=== PATIENT | male | born 1940 | race Caucasian/White ===

== ENCOUNTER → 2019-11-15 | Outpatient (CLI) | payer MEDICARE, BC ==
[~2019-11-15] MED LIST: DOMPERIDONE; MUCINEX TA600 MG/TA1 PO; NORCO 7.5-3251 EACH; OMEPRAZOLE 20 M20 MG PO; PREDNISONE 10 M10 M1 PO; ZETIA10 MG
== END ==
LOC: M.RAD 16:21
DX: J41.8 Mixed simple and mucopurulent chronic bronchitis (principal); R06.2 Wheezing

== ENCOUNTER → 2020-05-24 | Outpatient (CLI) | payer MEDICARE, BC | LOC: M.CT 16:45 | PROVIDERS: ATTEND Registered Nurse Diabetes Educator | DX: K80.80 Other cholelithiasis without obstruction (principal); K59.00 Constipation, unspecified; J98.11 Atelectasis; K76.89 Other specified diseases of liver; K40.90 Unilateral inguinal hernia, without obstruction or gangrene, not specified as recurrent; K57.30 Diverticulosis of large intestine without perforation or abscess without bleeding ==

== ENCOUNTER → 2020-06-26 | Outpatient (CLI) | payer MEDICARE, BC | LOC: M.NUC 12:21 | PROVIDERS: ATTEND Registered Nurse Diabetes Educator | DX: K80.20 Calculus of gallbladder without cholecystitis without obstruction (principal) ==